=== PATIENT | male | born 1995 ===

== ENCOUNTER 2024-11-16 10:10 | Emergency (ER) | payer BC, SELFPAY ==
[2024-11-16 10:15] VITALS: BP 129/79
--- NOTE | 2024-11-16 10:55 | ED.GENMED ---
History of Present Illness
General
Chief Complaint: Skin Problem
Time Seen by Provider: 11/16/24 10:45
History of Present Illness
History of Present Illness:
29-year-old male presents to the emergency department for evaluation of not improving left calf redness for the past 3 days. Went to urgent care yesterday and was diagnosed with cellulitis and placed on Bactrim however the erythema has increased
today. No fevers or chills. Denies any known injuries but does admit to doing jujitsu
Review of Systems
Review of Systems
Allergies reviewed?: Yes
All Other Systems: ROS reviewed and negative except as documented in HPI and ROS
Phy Exam
Physical Exam
Physical Exam:
GEN: Well appearing, NAD, WDWN
HEENT: Oral mucosa moist, no scleral icterus
Cardiac: Regular rate
Lung: No respiratory distress, no tachypnea
MSK: No gross deformity or injuries
Skin: Good color, no pallor or jaundice, 2 x 1 cm fluctuant abscess to the left medial calf with erythema extending superiorly and inferiorly to the site
Neuro: AO x3, moves all extremities freely
Psych: Calm, cooperative
Course
Vital Signs
Initial and Last Documented VS:
Initial Vital Signs
Temp Pulse Resp BP Pulse Ox
98.6 F 87 16 129/79 99
11/16/24 10:15 11/16/24 10:15 11/16/24 10:15 11/16/24 10:15 11/16/24 10:15
Last Documented Vital Signs
Temp Pulse Resp BP Pulse Ox
98.6 F 87 16 129/79 99
11/16/24 10:15 11/16/24 10:15 11/16/24 10:15 11/16/24 10:15 11/16/24 10:15
Procedures
Incision/Drainage/Joint Aspiration
Left calf:
Anethesia: 1% Lidocaine
Preparation: cleaned with Betadine
Type of procedure: aspiration
Nature of site: abscess
Description of abscess: less than 3cm
Loculations broken up: No
How much fluid was obtained?: scant amount
Fluid description: purulent
Treatment: bandaid applied
MDM/Problems Addressed
MDM/Problems Addressed:
The site was aspirated for a small volume of purulent discharge. Will add cephalexin however patient is advised to use Bactrim only for the next 48 hours as this will likely provide relief particularly given source control with aspiration. No
signs of sepsis no indication for labs
*Critical Care Note
Total Time (30-74mins, 75-104mins- exclusive of procedures): Not Applicable
ED Attending Note
-
Portions of this chart may have been created with voice recognition software.� Occasional wrong word or��sound alike� substitutions may have occurred due to the inherent limitations of voice recognition software.
Discharge Plan
Departure
Patient Disposition: Home (Routine Discharge)
Date of Disposition: 11/16/24
Time of Disposition: 10:57
Patient with high blood pressure during this ER visit?: No
Discharge Problem:
Abscess of left leg
Instructions: Skin Abscess
Prescriptions:
New
cephalexin 500 mg capsule
500 mg PO TID 7 Days Qty: 21 0RF
Activity Restrictions/Additional Instructions:
Do not start the cephalexin, continue only the Bactrim however if symptoms or not improving by Monday you may start the cephalexin
Interventions
Interventions:
*Risk Screen - Suicide Last Done: 11/16/24 10:15
*General Assessment Last Done: 11/16/24 10:18
*Neglect/Abuse Screening Last Done: 11/16/24 10:15
*ED- Fall Risk Assessment Last Done: 11/16/24 11:05
*ED COVID-19 Vaccine History Last Done: 11/16/24 11:05
*Nursing Disposition Last Done: 11/16/24 11:05
ED-Skin Assessment Last Done: 11/16/24 11:04
Discharge Date and Time
Discharge Date/Time: 11/16/24 11:06
Print Language: ESTONIAN
== END 2024-11-16 11:06 | disposition home or self-care (01) ==
LOC: EMR 10:10
PROVIDERS: EMERGENCY PHYSICIAN Emergency Medicine
DX: L02.416 Cutaneous abscess of left lower limb (principal)
CPT/HCPCS: 10060; 99282